=== PATIENT | male | born 1960 | race Caucasian/White ===

== ENCOUNTER 2017-12-08 14:52 | Inpatient (IN) | payer MEDICAID, MEDICARE ==
[~2017-12-08] VITALS: Ht 190.5 cm; Wt 113.4 kg
[~2017-12-08 14:52] MED LIST: ALPR1TAB7 PO; CARI350T22; CLON1TAB72 PO; DIVA500T59 OR; FLUO40CA OR; GABA800T97 PO; LAMO200T34 PO; LISI40TA PO; MULTLIQ PO; NOR10T; OMEP20CA74 PO; PROMETHAZINE PO; PROPRANOLOL PO; TEMA30CA5 PO; TRAZ100T2 PO; TRAZADONE 100 MG PO; ZIPR20CA15 PO
[2017-12-08] MEDS ORDERED: LORazepam 2MG/ML-1ML VIAL ONE (15:02)
[2017-12-08] MEDS ORDERED: SODIUM CHLORIDE 0.9% 1,000 ML IVB ONE (15:05)
[2017-12-08 15:26] LABS: Basophils # (auto) 0.1 uL; Basophils % (auto) 0.6 % (0.0-2.0); Eosinophils # (auto) 0.3 uL; Eosinophils % (auto) 2.2 % (0.0-7.0); Hematocrit 46.9 % (41.0-53.0); Lymphocytes # (auto) 4.3 uL; Lymphocytes % (auto) 37.8 % (10.0-50.0); Mean Corpuscular Hemoglobin 32.4 pg (28.0-32.0); Mean Corpuscular Hgb Conc. 34.1 g/dL (32.0-36.0); Mean Corpuscular Volume 95.1 fL (80.0-100.0); Monocytes # (auto) 0.7 uL; Monocytes % (auto) 6.2 % (0.0-12.0); Neutrophils % (auto) 53.2 % (37.0-80.0); Nucleated Red Blood Cells % 0.3 %; Platelet Count (auto) 221 10^3/uL (140-450); Red Blood Cells 4.94 10^6/uL (4.5-5.90); Red Cell Distribution Width 13.7 % (11.8-14.3); White Blood Cell 11.4 10^3/uL (4.4-10.8)
[2017-12-08 15:32] LABS: Partial Thromboplastin Time 24.4 sec (23.78-33.04); Prothrombin Time 10.7 sec (9.27-12.13)
[2017-12-08 15:35] LABS: Alanine Aminotransferase 30 U/L (16-61); Albumin 4.1 g/dL (3.4-5.0); Anion Gap 20 (5-15); Aspartate Aminotransferase 29 U/L (15-37); BUN/Creatinine Ratio 7.4; Blood Alcohol < 3.0 mg/dL (0-5); Blood Urea Nitrogen 10 mg/dL (7-18); Calcium 8.8 mg/dL (8.5-10.1); Carbon Dioxide 14 mmol/L (21-32); Chloride 106 mmol/L (98-107); GFR African American 69 mL/min; GFR Non-African American 57 mL/min; Glucose 179 mg/dL (74-106); Magnesium 2.3 mg/dL (1.6-2.6); Potassium 4.5 mmol/L (3.5-5.1); Sodium 140 mmol/L (136-145)
[2017-12-08 15:43] LABS: Alkaline Phosphatase 53 U/L (45-117); Bilirubin, Total 0.4 mg/dL (0.2-1.0); Total Protein 8.2 g/dL (6.4-8.2)
[2017-12-08] MEDS ORDERED: LORazepam 2MG/ML-1ML VIAL IV ONE (15:45)
[2017-12-08 15:50] LABS: Lactic Acid w/Reflex 12.5 mmol/L (0.4-2.0)
[2017-12-08] MEDS ORDERED: SODIUM CHLORIDE 0.9% 1,000 ML IV ONE ×2 (16:00→17:15)
[2017-12-08] MEDS ORDERED: SODIUM CHLORIDE 0.9% 1,000 ML IV SCH (16:06)
[2017-12-08 16:11] LABS: Urine Bacteria NONE SEEN /hpf (None Seen); Urine Blood Negative /uL (Negative); Urine Hyaline Cast FEW /lpf (0 - 2); Urine Mucus FEW (None Seen); Urine Specific Gravity 1.029 (1.001-1.035); Urine WBC 1 /hpf (0 - 3)
[2017-12-08] MEDS ORDERED: ACETAMINOPHEN 500 MG TAB PO PRN (16:15)
[2017-12-08] MEDS ORDERED: ALBUTEROL SULF 2.5 MG/0.5ML(0.5%) NEB SOLN NEB PRN (16:15)
[2017-12-08] MEDS ORDERED: LORazepam 2MG/ML-1ML VIAL IV PRN (16:15)
[2017-12-08] MEDS ORDERED: ONDANSETRON HCL 4 MG/2 ML VIAL IV PRN (16:15)
[2017-12-08] MEDS ORDERED: NITROGLYCERIN 0.4 MG SL TAB SL PRN (16:15)
[2017-12-08] MEDS ORDERED: MORPHINE SULFATE 4 MG/ML SYR/VIAL IV PRN ×2 (16:15)
[2017-12-08] MEDS ORDERED: LACTULOSE 20Gm/30ML SOLN PO PRN (16:15)
[2017-12-08] MEDS ORDERED: cefTRIAXone 1GM/10ml IVPUSH 10 ML IV ONE (16:15)
[2017-12-08] MEDS ORDERED: HYDROcodone-ACET 5/325MG TAB PO PRN (16:15)
[2017-12-08 16:29] LABS: Alcohol, Urine < 3.0 mg/dL (0-5); Amphetamine Screen, Urine NEGATIVE (NEGATIVE); Barbiturate Scree,Urine NEGATIVE (NEGATIVE); Benzodiazephine Screen, Urine NEGATIVE (NEGATIVE); Cannabinoid Screen, Urine NEGATIVE (NEGATIVE); Cocaine Screen, Urine NEGATIVE (NEGATIVE); Opiate Scree,Urine POSITIVE (NEGATIVE); Phencyclidine Screen, Urine NEGATIVE (NEGATIVE)
[2017-12-08] MEDS ORDERED: METHOCARBAMOL 500 MG TAB PO PRN ×2 (16:45→17:00)
[2017-12-08] MEDS ORDERED: PANTOPRAZOLE 40 MG TAB PO SCH (17:00)
[2017-12-08 17:47] VITALS: BP 121/78
[2017-12-08] MEDS ORDERED: TAMSULOSIN HYDROCHLORIDE 0.4 MG CAP PO SCH (18:00)
[2017-12-08 18:24] VITALS: BP 122/66
[2017-12-08] MEDS ORDERED: ATORVASTATIN 20 MG TAB PO SCH (22:00)
[2017-12-08] MEDS ORDERED: ALPRAZolam 0.5 MG TAB PO SCH (22:00)
[2017-12-08] MEDS ORDERED: lamoTRIgine 100 MG TAB PO SCH (22:00)
[2017-12-08] MEDS ORDERED: GABAPENTIN 400 MG CAP PO SCH (22:00)
[2017-12-09] MEDS ORDERED: FLUoxetine HCL 20 MG CAP PO SCH (07:00)
[2017-12-09] MEDS ORDERED: cefTRIAXone 1GM/10ml IVPUSH 10 ML IV SCH (09:00)
[2017-12-09] MEDS ORDERED: risperiDONE 1 MG TAB PO SCH (10:00)
[2017-12-09] MEDS ORDERED: ZIPRASIDONE 20MG CAPSULE PO SCH (10:00)
== END 2017-12-08 20:11 | disposition left against medical advice (07) | DRG 871 ==
LOC: ER 14:52 → EDBD 14:52 → TELE 14:53
PROVIDERS: ADMIT Internal Medicine; ATTEND Internal Medicine
DX: A41.9 Sepsis, unspecified organism (principal); J18.1 Lobar pneumonia, unspecified organism; G40.89 Other seizures; J32.0 Chronic maxillary sinusitis; F41.9 Anxiety disorder, unspecified; I10 Essential (primary) hypertension; K21.9 Gastro-esophageal reflux disease without esophagitis; E78.5 Hyperlipidemia, unspecified; F31.9 Bipolar disorder, unspecified; G31.9 Degenerative disease of nervous system, unspecified; M54.12 Radiculopathy, cervical region; Z82.3 Family history of stroke; Z79.899 Other long term (current) drug therapy; Z82.49 Family history of ischemic heart disease and other diseases of the circulatory system; Z88.6 Allergy status to analgesic agent; Z83.3 Family history of diabetes mellitus; Z87.820 Personal history of traumatic brain injury
CPT/HCPCS: 36415; 51702; 70450; 71045; 80053; 80307; 80320; 81001; 83605; 83735; 84484; 85025; 85610; 85652; 85730; 87040; 96361; 96374; 96375; 99291; J0696